=== PATIENT | male | born 1975 | race Caucasian/White ===

== ENCOUNTER 2016-09-26 00:30 | Inpatient (IN) | payer OTHER ==
[2016-09-26] MEDS ORDERED: EPINEPHrine 1 MG/10 ML SYR IVP ONE ×6 (00:35→04:54)
[2016-09-26] MEDS ORDERED: IOPAMIDOL (ISOVUE 370) 100 ML BTL IV ONE (00:49)
[2016-09-26] MEDS ORDERED: SODIUM BICARBONATE 50 MEQ/50 ML SYR IVP ONE ×2 (01:01→02:44)
[2016-09-26] MEDS ORDERED: CALCIUM CHLORIDE 1 GM/10 ML INJ IVP ONE (01:02)
[2016-09-26 01:04] LABS: ANION GAP 27 mEq/L (8-16); CALCIUM 8.6 mg/dL (8.5-10.4); CARBON DIOXIDE 16 mEq/l (22-31); CHLORIDE 97 mEq/L (97-110); CREATININE 0.9 mg/dL (0.7-1.3); GLOMERULAR FILTRATION RATE > 60; POTASSIUM 4.7 mEq/L (3.5-5.2); SODIUM 140 mEq/L (134-144)
[2016-09-26 01:15] LABS: GLUCOSE 620 mg/dL (70-100)
[2016-09-26 01:18] LABS: ABSOLUTE NRBC COUNT 0.08 10^3/uL (0-0.01); ADD DIFF? YES; ADD MORPH? NO; ATYPICAL LYMPHOCYTE FLAG 0 (0-99); FRAGMENT RBC FLAG 0 (0-99); HEMATOCRIT 48.5 % (40.0-51.0); HEMOGLOBIN 14.7 g/dL (13.7-17.5); LIPEMIA HEMOLYSIS FLAG 80 (0-99); MEAN CELL HEMOGLOBIN 28.2 pg (27.9-34.1); MEAN CELL HEMOGLOBIN CONCENTR. 30.3 g/dL (32.4-36.7); MEAN CELL VOLUME 92.9 fL (81.5-99.8); MEAN PLATELET VOLUME 12.8 fL (8.7-11.7); NRBC-AUTO% 0.5 % (0.0-0.2); PLATELET CLUMPS FLAG 0 (0-99); PLATELET COUNT 156 10^3/uL (150-400); RED BLOOD CELL COUNT 5.22 10^6/uL (4.40-6.38); RED CELL DISTRIBUTION WIDTH 12.2 % (11.5-15.2)
[2016-09-26] MEDS ORDERED: NOREPINEPHRINE 4 MG/4 ML INJ IV ONE (01:19)
[2016-09-26 01:24] LABS: TROPONIN I 0.079 ng/mL (0-0.034)
--- NOTE | 2016-09-26 01:26 | EDPHY ---
H & P Time Seen by Provider: 09/26/16 00:51 HPI/ROS: HPI The patient presents brought in by ambulance as full trauma activation after hanging with cardiac arrest from fdc. Apparently, the patient was last seen in his fdc cell at approximately 11:00 p.m. At 11:53 p.m. the fdc nurse was notified that the patient had hanged himself from for a low ceiling height. He was removed from this apparatus. However he was unresponsive without any pulses. EMS arrived at 11:53 and began CPR and bagging. He received epinephrine with transient return in pulses, then went into PEA. REVIEW OF SYSTEMS Unable to obtain given patient's mental status PMHx: Unable to obtain given patient's mental status Soc Hx: Unable to obtain given patient's mental status PHYSICAL General Appearance: Unresponsive obese man, being bagged with ongoing chest compressions Eyes: Pupils equal and round no pallor or injection ENT, Mouth: Mucous membranes moist Respiratory: There are no retractions, lungs are clear to auscultation with bagging Cardiovascular: pulseless Gastrointestinal: Abdomen is soft and non-tender, no masses, bowel sounds normal Neurological: Unresponsive, does not move his extremities Skin: Warm and dry, no rashes Musculoskeletal: neck with no obvious injuries Extremities: symmetrical, no edema Source: EMS Exam Limitations: Clinical condition Constitutional: Initial Vital Signs Temperature (C) 35.7 C L 09/26/16 02:10 Heart Rate 105 H 09/26/16 02:10 Blood Pressure 64/35 L 09/26/16 02:10 O2 Sat (%) 100 09/26/16 02:10 O2 Delivery Mode Ventilator O2 (L/minute) 15 Allergies/Adverse Reactions: Unable to Assess Allergy (Unverified 09/26/16 02:12) Home Medications: Medication Instructions Recorded Unobtainable 09/26/16 Medical Decision Making - Diagnostics EKG Interpretation: EKG: Complete interpretation has been separately recorded in the [facility] archive. Summary impression: Normal sinus rhythm with diffuse ST segment depressions Imaging Results: CT head and neck demonstrates no acute injuries, discussed with Dr. Colbert of Radiology. Chest x-ray demonstrates no cardiomegaly, interpreted by me, radiology interpretation is pending. Procedures: INTUBATION Procedure: Rapid sequence intubation. Indication for the procedure was airway protection. The patient was preoxygenated with 100% oxygen by face mask and nasal cannula. The patient was given the following IV medications: None. The patient was orally endotracheally intubated using the glide scope with a 8.0 ETT. In line stabilization was performed during the procedure. Tracheal intubation was confirmed with misting on the tube; breath sounds were auscultated equally bilaterally; appropriate color change with [place] End Tidal CO2 detector. Chest X-ray shows ETT in good position. The procedure was performed by myself. Differential Diagnosis: This is a 40-year-old male with unknown past medical history, brought in by ambulance after hanging while in fdc. Possibly hanged for 50 minutes given last seen normally at approximately 11:00 p.m.. Medics started CPR in the field when he was found asystolic. He initially had return of spontaneous circulation, however lost pulses. On arrival, the patient was being bagged with CPR in progress. I intubated him. CPR was continued, he was given epinephrine and sodium bicarbonate using ACLS protocols. He had return of spontaneous circulation with pulse and high blood pressure. I-STAT performed did show elevated potassium of 6 with high glucose. He was given 2 L of IV fluid. Went to the CT scanner for imaging and there he had an arrest again. He was given epinephrine, calcium. Dr. Powers placed a Zoll cooling catheter. CT scans were unremarkable. He did not have any meaningful improvement in mental status. He was admitted to the ICU by Dr. Powers. - Data Points Laboratory Results: Laboratory Results 09/26/16 00:40 09/26/16 00:40 09/26/16 09/26/16 09/26/16 01:49 00:58 00:40 WBC RBC Hgb POC Hgb Pending Hct POC Hct Pending MCV MCH MCHC RDW Plt Count MPV Neut % (Auto) Lymph % (Auto) Mchenry % (Auto) Eos % (Auto) Baso % (Auto) Nucleat RBC Rel Count Absolute Neuts (auto) Absolute Lymphs (auto) Absolute Monos (auto) Absolute Eos (auto) Absolute Basos (auto) Absolute Nucleated RBC Immature Gran % Seg Neutrophils % Band Neutrophils % Lymphocytes % Monocytes % Eosinophils % Metamyelocytes % Myelocytes % Immature Gran # Absolute Seg Neuts Absolute Band Neuts Absolute Lymphocytes Absolute Monocytes Absolute Eosinophils Absolute Metamyelocyte Absolute Myelocytes RBC/WBC/PLT Morphology Platelet Estimate Smear Review By PT INR APTT Puncture Site LEFT RADIAL Patient Temperature 37.0 DEGREES DEGREES pCO2 51 mmHg H mmHg (34-38) pO2 175 mmHg H mmHg (65-75) Total CO2 15 mEq/L L mEq/L (23-27) ABG pH 7.04 L* (7.35-7.45) ABG HCO3 13 mEq/L L mEq/L (22-26) ABG O2 Saturation 98 % H % (92-95) ABG Base Excess -17.6 mEq/L L mEq/L (-2.5-2.5) Total O2 Concentration 100.0 LITERS LITERS Actual Respiration Rate 18 Set Respiration Rate 18 SIMV YES Tidal Volume 700 End Tidal CO2 38 PEEP 5 Pressure Support 7 POC Sodium 146 mEq/L H mEq/L (134-144) Sodium 140 mEq/L mEq/L (134-144) POC Potassium 3.0 mEq/L L mEq/L (3.3-5.0) Potassium 4.7 mEq/L mEq/L (3.5-5.2) POC Chloride Pending Chloride 97 mEq/L mEq/L (97-110) Carbon Dioxide 16 mEq/l L mEq/l (22-31) Anion Gap 27 mEq/L H mEq/L (8-16) POC BUN 7 mg/dL mg/dL (7-23) BUN 11 mg/dL mg/dL (7-23) Creatinine 0.9 mg/dL mg/dL (0.7-1.3) POC Creatinine 0.5 mg/dL L mg/dL (0.7-1.3) Estimated GFR > 60 Glucose 620 mg/dL H* mg/dL (70-100) POC Glucose 291 mg/dL H mg/dL (70-100) Calcium 8.6 mg/dL mg/dL (8.5-10.4) Troponin I 0.079 ng/mL H ng/mL (0-0.034) 09/26/16 09/26/16 09/26/16 00:40 00:40 00:32 WBC 16.85 10^3/uL H 10^3/uL (3.80-9.50) RBC 5.22 10^6/uL 10^6/uL (4.40-6.38) Hgb 14.7 g/dL g/dL (13.7-17.5) POC Hgb 16.7 gm/dL gm/dL (13.7-17.5) Hct 48.5 % % (40.0-51.0) POC Hct 49 % % (40-51) MCV 92.9 fL fL (81.5-99.8) MCH 28.2 pg pg (27.9-34.1) MCHC 30.3 g/dL L g/dL (32.4-36.7) RDW 12.2 % % (11.5-15.2) Plt Count 156 10^3/uL 10^3/uL (150-400) MPV 12.8 fL H fL (8.7-11.7) Neut % (Auto) Not Reported Lymph % (Auto) Not Reported Mchenry % (Auto) Not Reported Eos % (Auto) Not Reported Baso % (Auto) Not Reported Nucleat RBC Rel Count 0.5 % H % (0.0-0.2) Absolute Neuts (auto) Not Reported Absolute Lymphs (auto) Not Reported Absolute Monos (auto) Not Reported Absolute Eos (auto) Not Reported Absolute Basos (auto) Not Reported Absolute Nucleated RBC 0.08 10^3/uL H 10^3/uL (0-0.01) Immature Gran % Not Reported Seg Neutrophils % 22 % % Band Neutrophils % 4 % % Lymphocytes % 54 % % Monocytes % 7 % % Eosinophils % 3 % % Metamyelocytes % 2 % % Myelocytes % 8 % % Immature Gran # Not Reported Absolute Seg Neuts 3.71 10^/uL 10^/uL (1.70-6.50) Absolute Band Neuts 0.67 10^3/uL 10^3/uL (0.00-0.70) Absolute Lymphocytes 9.10 10^3/uL H 10^3/uL (1.00-3.00) Absolute Monocytes 1.18 10^3/uL H 10^3/uL (0.30-0.80) Absolute Eosinophils 0.51 10^3/uL H 10^3/uL (0.03-0.40) Absolute Metamyelocyte 0.34 10^3/mL H 10^3/mL (0.00-0.00) Absolute Myelocytes 1.35 10^3/mL H 10^3/mL (0.00-0.00) RBC/WBC/PLT Morphology NORMAL (NORMAL) Platelet Estimate ADEQUATE (ADEQ) Smear Review By Pending PT 19.5 SEC H SEC (12.0-15.0) INR 1.64 H (0.83-1.16) APTT 63.2 SEC H SEC (23.0-38.0) Puncture Site Patient Temperature pCO2 pO2 Total CO2 ABG pH ABG HCO3 ABG O2 Saturation ABG Base Excess Total O2 Concentration Actual Respiration Rate Set Respiration Rate SIMV Tidal Volume End Tidal CO2 PEEP Pressure Support POC Sodium 135 mEq/L mEq/L (134-144) Sodium POC Potassium 6.0 mEq/L H mEq/L (3.3-5.0) Potassium POC Chloride 102 mEq/L mEq/L (97-110) Chloride Carbon Dioxide Anion Gap POC BUN 17 mg/dL mg/dL (7-23) BUN Creatinine POC Creatinine 0.9 mg/dL mg/dL (0.7-1.3) Estimated GFR Glucose POC Glucose 541 mg/dL H* mg/dL (70-100) Calcium Troponin I Medications Given: Discontinued Medications Calcium Chloride (Calcium Chloride) 1 gm IVP ONCE ONE Stop: 09/26/16 01:03 Last Admin: 09/26/16 01:02 Dose: 1 gm Epinephrine HCl (Epinephrine) 1 mg IVP ONCE ONE Stop: 09/26/16 00:36 Last Admin: 09/26/16 00:35 Dose: 1 mg Epinephrine HCl (Epinephrine) 1 mg IVP ONCE ONE Stop: 09/26/16 00:38 Last Admin: 09/26/16 00:37 Dose: 1 mg Epinephrine HCl (Epinephrine) 1 mg IVP ONCE ONE Stop: 09/26/16 00:57 Last Admin: 09/26/16 00:56 Dose: 1 mg Epinephrine HCl 1 mg/ Dextrose 250 mls @ 0 mls/hr IV CONT ANTONIO; Titrate PRN Reason: Protocol Stop: 03/25/17 02:29 Last Admin: 09/26/16 01:28 Dose: 250 mls Sodium Chloride (Ns) 2,000 mls @ 0 mls/hr IV ONCE ONE PRN Reason: Wide Open Stop: 09/26/16 02:39 Last Admin: 09/26/16 00:35 Dose: 2,000 mls Sodium Bicarbonate (Sodium Bicarbonate) 50 meq IVP ONCE ONE Stop: 09/26/16 02:45 Last Admin: 09/26/16 01:01 Dose: 50 meq Sodium Bicarbonate (Sodium Bicarbonate) 50 meq IVP ONCE ONE Stop: 09/26/16 01:02 Last Admin: 09/26/16 00:37 Dose: 50 meq Point of Care Test Results: 09/26/16 09/26/16 00:32 00:58 POC Sodium 135 146 H POC Potassium 6.0 H 3.0 L POC Chloride 102 POC BUN 17 7 POC Creatinine 0.9 0.5 L POC Glucose 541 H* 291 H Departure - Departure Disposition: [facility] Inpatient Acute Clinical Impression: Cardiac arrest Hanging Qualifiers: Encounter type: initial encounter Qualified Code(s): T71.164A - Asphyxiation due to hanging, undetermined, initial encounter Condition: Critical Referrals: Patient,NotPresent [Primary Care Provider] - As per Instructions
[2016-09-26 01:28] LABS: LEFT SHIFT FLG 150 (0-99)
[2016-09-26 01:29] LABS: ADD SCAN? NO; INR 1.64 (0.83-1.16); PROTIME(PATIENT) 19.5 SEC (12.0-15.0)
[2016-09-26 01:30] LABS: APTT 63.2 SEC (23.0-38.0)
[2016-09-26] MEDS ORDERED: PHENYLEPHRINE HCL 100 MCG/ML SYR ONE (01:37)
[2016-09-26] MEDS ORDERED: NOREPINEPHRINE/NS 4 MG/500 ML BAG IV ONE (01:37)
--- NOTE | 2016-09-26 01:49 | CPEKG ---
Heart Rate: 116 RR Interval: 517 P-R Interval: 144 QRSD Interval: 90 QT Interval: 348 QTC Interval: 484 P Chester: -41 QRS Chester: 181 T Wave Chester: 184 EKG Severity - ABNORMAL ECG - EKG Impression: SINUS TACHYCARDIA EKG Impression: RIGHT AXIS DEVIATION EKG Impression: REPOL ABNRM SUGGESTS ISCHEMIA, DIFFUSE LEADS EKG Impression: BORDERLINE PROLONGED QT INTERVAL Electronically Signed By: Velia Rader 26-Sep-2016 05:28:43
[2016-09-26 01:55] LABS: PLATELET ESTIMATE ADEQUATE (ADEQ)
[2016-09-26] MEDS ORDERED: EPINEPHrine 2 MG in D5W 500 ML IV SCH (02:00)
[2016-09-26 02:06] LABS: BICARBONATE 13 mEq/L (22-26); MEASURED OXYGEN SATURATION 98 % (92-95); PCO2 51 mmHg (34-38); TCO2 15 mEq/L (23-27)
[2016-09-26 02:11] LABS: BASE EXCESS -17.6 mEq/L (-2.5-2.5); PO2 175 mmHg (65-75)
[2016-09-26] MEDS ORDERED: NALOXONE HCL 0.4 MG/ML INJ IVP PRN (02:12)
[2016-09-26 02:14] LABS: PATIENT RATE 18; SIMV YES
[2016-09-26 02:15] LABS: END TIDAL CO2 38; PRESSURE SUPPORT 7
[2016-09-26] MEDS ORDERED: PROPOFOL/EMULSION 50 ML IV ONE (02:26)
[2016-09-26] MEDS ORDERED: LR 1,000 ML IV SCH (02:30)
[2016-09-26] MEDS ORDERED: NS 2,000 ML IV ONE (02:38)
--- NOTE | 2016-09-26 03:24 | GDS ---
[f rep st] DISCHARGE SUMMARY SUMMARY: HISTORY OF PRESENT ILLNESS: Patient was admitted earlier in the evening after apparently being foun d in the intermediate with a bed sheet wrapped around his neck pulseless, brought in with CPR in progress, i ntubated in the emergency department. CPR and medical treatment were instituted, and the patient re gained a pulse. He was taken to CT scan where he again became asystolic, had additional CPR and epi nephrine, etc. Eventually a cooling catheter was placed, and the patient was taken to the intensive care unit on an epinephrine drip, ventilated, cooling instituted through the right femoral venous l ine, and he became more bradycardic, hypotensive, and needed CPR again, 15-20 minutes of CPR were do ne with multiple rounds of epinephrine and bicarb, and eventually as he degenerated into VFib, amiod arone was given. Despite additional CPR and multiple shocks, it was felt that further care was futi le and CPR was stopped. /[id number]/MODL
--- NOTE | 2016-09-26 03:30 | HOSPPROG ---
Hospitalist Progress Note Assessment/Plan: Harjit Armas Note Patient brought in from retirement after hanging himself and found pulseless, thus CPR performed in route. In ER, was intubated, regained pulse and cooling protocol initiated. Went into asystole again in CT scan with ROSC with CPR and started on epi gtt. Harjit armas called approx 2:40am in ICU again for asystole likely due to hypoxia and acidosis. ACLS was initiated with CPR and Epi. Dosed bicarb x 2 given severe acidosis with pH 7. Converted to V fib, shocked several times, dosed Amio without return to normal rhythm. CPR conducted for approx 15 min and was discontinued with no ROSC. Critical care time spent 25 min performing ACLS, reviewing labs, imaging and notes. Objective: Vital Signs Temp Pulse Resp BP Pulse Ox 0 L 14 70 L 09/26/16 02:29 09/26/16 02:29 09/26/16 02:29 PT 19.5 SEC (12.0-15.0) H 09/26/16 00:40 INR 1.64 (0.83-1.16) H 09/26/16 00:40 ICD10 Worksheet Patient Problems: Problems Problem Status Onset Cardiac arrest Acute Hanging Acute
[2016-09-26 03:34] VITALS: TEMP 96.4
[2016-09-26 03:36] VITALS: RESP 14
[2016-09-26 03:55] VITALS: BP 32/22; PULSE 108; O2SAT 95
[2016-09-26] MEDS ORDERED: AMIODARONE HCL 150 MG/3 ML VIAL ONE (04:54)
[2016-09-26] MEDS ORDERED: DOPamine/DEXTROSE/250 ML BAG IV ONE (04:54)
[2016-09-26] MEDS ORDERED: SODIUM BICARBONATE 50 MEQ/50 ML SYR ONE (04:54)
[2016-09-26] MEDS ORDERED: PROPOFOL/EMULSION 1,000 MG/100 ML BOTTLE IV ONE (05:40)
[2016-09-26] MEDS ORDERED: FAMOTIDINE 20 MG/NACL 50 ML IV SCH (09:00)
== END 2016-09-26 02:59 | disposition expired | DRG 297 ==
LOC: EDUNIT# → EEVIPCON 00:30 → F2N 02:30
PROVIDERS: ADMIT Surgery; ATTEND Surgery
PROC: 0BH18EZ Insertion of Endotracheal Airway into Trachea, Via Natural or Artificial Opening Endoscopic (ICD-10-PCS; principal; 2016-09-26)
PROC: 5A19054 Respiratory Ventilation, Single, Nonmechanical (ICD-10-PCS; principal; 2016-09-26)
DX: I46.8 Cardiac arrest due to other underlying condition (principal); T71.162A Asphyxiation due to hanging, intentional self-harm, initial encounter
CPT/HCPCS: 82947-QW; 96374; J0171; J0282; J1265; J2370; J2704; L0120; Q9967